=== PATIENT | female | born 1950 | race Caucasian/White ===

== ENCOUNTER 2023-01-13 11:48 | Inpatient (IN) | payer OTHER ==
[~2023-01-13] VITALS: Ht 162.6 cm; Wt 99.3 kg
[2023-02-08] MEDS ORDERED: SCOPOLAMINE HYDROBROMIDE 1 MG PATCH .72 H (TRANSDERM-SCOP) TD ONE ×2 (05:52→07:45)
[2023-02-08] MEDS ORDERED: ACETAMINOPHEN 500 MG TABLET ONE (05:52)
[2023-02-08] MEDS ORDERED: GABAPENTIN 300 MG CAPSULE ONE (05:53)
[2023-02-08] MEDS ORDERED: oxyCODONE HCL 10 MG TAB.ER.12H PO ONE ×2 (05:53→07:45)
[2023-02-08] MEDS ORDERED: CEFAZOLIN SOD 2 GM in D5W 50 ML IV ONE (06:30)
[2023-02-08] MEDS ORDERED: DIPHENHYDRAMINE HCL 25 MG CAPSULE PO PRN (07:30)
[2023-02-08] MEDS ORDERED: VANCOMYCIN HCL 1000 MG/VIAL IV ONE (07:30)
[2023-02-08] MEDS ORDERED: LACTULOSE 20 GM/30 ML UDC PO PRN (07:30)
[2023-02-08] MEDS ORDERED: ROCURONIUM BROMIDE 10 MG/ML (ZEMURON) ONE (07:30)
[2023-02-08] MEDS ORDERED: BUPIVACAINE /PF 0.25% 30 ML VIAL INJ ONE (07:30)
[2023-02-08] MEDS ORDERED: TRANEXAMIC ACID 1,000 MG/10 ML VIAL ONE (07:30)
[2023-02-08] MEDS ORDERED: MIDAZOLAM HCL/PF 2 MG/2 ML SYRINGE ONE (07:30)
[2023-02-08] MEDS ORDERED: MORPHINE SULFATE 10MG/10ML PF AMP ONE (07:30)
[2023-02-08] MEDS ORDERED: NALOXONE HCL 0.4 MG/ML AMP (NARCAN) IVP PRN ×4 (07:30→08:30)
[2023-02-08] MEDS ORDERED: NS 1000 ML IV.SOLN IV ONE (07:30)
[2023-02-08] MEDS ORDERED: KETOROLAC TROMETHAMINE 30 MG VIAL ONE (07:30)
[2023-02-08] MEDS ORDERED: NS IRRIG SOLN 1000 ML IR ONE (07:30)
[2023-02-08] MEDS ORDERED: ONDANSETRON HCL 4 MG/2 ML VIAL ONE (07:30)
[2023-02-08] MEDS ORDERED: DESFLURANE 15 MIN GAS INH ONE (07:30)
[2023-02-08] MEDS ORDERED: LIDOCAINE 2%, 20 ML MDV ONE (07:30)
[2023-02-08] MEDS ORDERED: SUGAMMADEX SODIUM 200 MG/2 ML VIAL IV ONE (07:30)
[2023-02-08] MEDS ORDERED: PROPOFOL 200MG/ 20ML VIAL (DIPRIVAN) IV ONE (07:30)
[2023-02-08] MEDS ORDERED: BISACODYL 10 MG/SUPPOSITORY RC PRN (07:30)
[2023-02-08] MEDS ORDERED: METOCLOPRAMIDE HCL 10 MG/2 ML VIAL IVP PRN ×2 (07:30→08:30)
[2023-02-08] MEDS ORDERED: CELECOXIB 100 MG CAPSULE PO ONE (07:45)
[2023-02-08] MEDS ORDERED: ACETAMINOPHEN 500 MG TABLET PO ONE (07:45)
[2023-02-08] MEDS ORDERED: METO25TA6 PO (08:11)
[2023-02-08] MEDS ORDERED: HYDR25TA4 PO (08:11)
[2023-02-08] MEDS ORDERED: BIFI10.5 PO (08:11)
[2023-02-08] MEDS ORDERED: NEU300 PO (08:11)
[2023-02-08] MEDS ORDERED: LEVO112T5 PO (08:11)
[2023-02-08] MEDS ORDERED: IBUP-1970 PO (08:11)
[2023-02-08] MEDS ORDERED: LIP10 PO (08:11)
[2023-02-08] MEDS ORDERED: TRAM50TA2 PO (08:11)
[2023-02-08] MEDS ORDERED: ASPI-858 PO (08:11)
[2023-02-08] MEDS ORDERED: PRO10 PO (08:11)
[2023-02-08] MEDS ORDERED: MULT-1117 PO (08:11)
[2023-02-08] MEDS ORDERED: hydrALAZINE HCL 20 MG/ML VIAL IVP PRN (08:30)
[2023-02-08] MEDS: LR 1,000 ML IV SCH ×2 (08:30→18:25)
[2023-02-08] MEDS ORDERED: HYDROmorphone 1 MG/ML INJ. CARTRIDGE IVP PRN ×5 (08:30→11:00)
[2023-02-08] MEDS ORDERED: ONDANSETRON HCL 4 MG/2 ML VIAL IVP PRN ×2 (08:30→11:45)
[2023-02-08] MEDS ORDERED: LABETALOL 100 MG/ 20ML VIAL IVP PRN (08:30)
[2023-02-08] MEDS ORDERED: MIDAZOLAM HCL 2 MG/2 ML VIAL (VERSED) IVP PRN (08:30)
[2023-02-08] MEDS ORDERED: DIPHENHYDRAMINE INJ 50 MG/ML VIAL IVP PRN (08:30)
[2023-02-08] MEDS ORDERED: MEPERIDINE HCL/PF 25 MG/ML DISP.SYRIN IVP PRN (08:30)
[2023-02-08] MEDS: DECADRON 4 MG TABLET PO SCH (09:00)
[2023-02-08 09:39] VITALS: PULSE 74; O2SAT 98
[2023-02-08] MEDS ORDERED: LORATADINE 10 MG TABLET PO PRN (11:00)
[2023-02-08] MEDS ORDERED: oxyCODONE HCL 5 MG TABLET PO PRN ×2 (11:00)
[2023-02-08] MEDS: ceFAZolin SODIUM 2 GM in D5W 50 ML IV SCH ×2 (11:15→21:58)
[2023-02-08 13:04] VITALS: BP_SYST 107; PULSE 65; RESP 16; TEMP 96.8; O2SAT 98
--- NOTE | 2023-02-08 13:05 | NUR ---
This is an admission of a 72 year old female under the care of Doctor Reyes status post left hip arthroscopy.
[2023-02-08 13:06] VITALS: O2SAT 2
[2023-02-08] MEDS: KETOROLAC TROMETHAMINE 10 MG TABLET (TORADOL) PO SCH ×2 (14:00→22:30)
[2023-02-08] MEDS: ACETAMINOPHEN 500 MG TABLET PO SCH ×2 (14:36→21:41)
[2023-02-08] MEDS: traMADol HCL HCL 50 MG TABLET (ULTRAM) PO PRN (14:36)
--- NOTE | 2023-02-08 17:38 | NUR ---
Patient ambulating well with walker in room 109 to restroom. Encouraged to sit up. Partial bed bath and linen change complete.
[2023-02-08 17:48] VITALS: BP_SYST 87; PULSE 76; RESP 16; TEMP 96.5; O2SAT 96
[2023-02-08 20:00] VITALS: BP_SYST 102; PULSE 77; RESP 16; TEMP 96.6; O2SAT 95
--- NOTE | 2023-02-08 20:00 | NUR ---
OPENING NOTES PATIENT IS SITTING BY BEDSIDE AXO 4 WITH NO S/S OF DISTRESS OR DISCOMFORT. BREATHING IS EQUAL AND UNLABORED ON RA. PATIENT WAS ABLE TO GET UP FROM CHAIR AND WALK TO BED WITH WALKER. PATIENT DENIES ANY PAIN. SAFETY CHECKS ARE DONE AND CALL LIGHT WITH IN REACH, WILL CONTINUE TO MONITOR.
[2023-02-08] MEDS: GABAPENTIN 300 MG CAPSULE PO SCH (21:41)
[2023-02-08] MEDS: SENNOSIDES/DOCUSATE SODIUM 1 TAB TABLET(SENOKOT-S) PO SCH (21:41)
[2023-02-09] VITALS: BP_SYST 112; PULSE 69; RESP 16; TEMP 97.4; O2SAT 94
[2023-02-09 03:03] VITALS: O2SAT 95
--- NOTE | 2023-02-09 03:55 | NUR ---
ROUNDS PATIENT IS ASLEEP IN BED WITH NO S/S OF DISTRESS OR DISCOMFORT. BREATHING IS EQUAL AND UNLABORED ON RA. SAFETY CHECKS ARE DONE, CALL LIGHT WITH IN REACH AND WILL CONTINUE TO MONITOR.
[2023-02-09] MEDS: ceFAZolin SODIUM 2 GM in D5W 50 ML IV SCH (04:41)
[2023-02-09] MEDS: ACETAMINOPHEN 500 MG TABLET PO SCH (05:30)
[2023-02-09] MEDS: KETOROLAC TROMETHAMINE 10 MG TABLET (TORADOL) PO SCH (05:32)
[2023-02-09] MEDS: LR 1,000 ML IV SCH (05:32)
[2023-02-09 06:01] LABS: HEMATOCRIT 32.9 % (36-48); HEMOGLOBIN 11.2 g/dL (12.0-16.0); LYMPHOCYTES # (AUTO) 0.8 K/uL (1.0-5.5); MEAN CORPUSCULAR HEMOGLOBIN 30 pg (27-31); MEAN CORPUSCULAR HGB CONC 34 % (32-36); MEAN CORPUSCULAR VOLUME 88 fL (79.0-98.0); MONOCYTES % (AUTO) 6.2 % (1.7-9.3); NEUTROPHILS # (AUTO) 14.4 K/uL (1.8-7.7); NEUTROPHILS % (AUTO) 88.8 % (40.0-70.0); PLATELET COUNT (AUTO) 298 K/uL (130-430); RED BLOOD CELL COUNT(AUTO) 3.76 MIL/uL (4.2-6.2); RED CELL DISTRIBUTION WIDTH 13.5 % (9.0-15.0); WHITE BLOOD COUNT (AUTO) 16.2 K/uL (4.8-10.8)
[2023-02-09 06:34] LABS: ALANINE AMINOTRANSFERASE 30 U/L (12-78); ALBUMIN 3.4 g/dL (3.4-4.8); ANION GAP 11 (5-15); ASPARTATE AMINOTRANSFERASE 44 U/L (10-37); CALCIUM 8.8 mg/dL (8.4-11.0); CHLORIDE 99 mmol/L (98-107); CREATININE 1.04 mg/dL (0.55-1.30); GLUCOSE 96 mg/dL (74-106); TOTAL BILIRUBIN 0.5 mg/dL (0.0-1.0); UREA NITROGEN, BLOOD 21 mg/dL (8-21)
--- NOTE | 2023-02-09 06:49 | NUR ---
CLOSING NOTES PATIENT IS LYING IN BED AXO 4 WITH NO S/S OF DISTRESS OR DISCOMFORT. BREATHING IS EQUAL AND UNLABORED ON RA. IVF ARE RUNNING. ALL NEEDS WERE MET AT THIS TIME. SAFETY CHECKS ARE DONE AND CALL LIGHT WITH IN REACH,.
[2023-02-09] MEDS ORDERED: LORATADINE 10 MG TABLET PO ONE (07:45)
[2023-02-09] MEDS ORDERED: POTASSIUM CHLORIDE 20 MEQ TAB.PRT.SR PO ONE (07:45)
[2023-02-09 08:00] VITALS: BP_SYST 110; PULSE 79; RESP 16; TEMP 96.9; O2SAT 97
[2023-02-09] MEDS: SENNOSIDES/DOCUSATE SODIUM 1 TAB TABLET(SENOKOT-S) PO SCH (08:48)
[2023-02-09] MEDS: DECADRON 4 MG TABLET PO SCH (08:49)
[2023-02-09] MEDS: GABAPENTIN 300 MG CAPSULE PO SCH (08:49)
[2023-02-09] MEDS ORDERED: LEVOTHYROXINE SODIUM 0.112 MG TABLET PO SCH (09:00)
[2023-02-09] MEDS ORDERED: HYDROCHLOROTHIAZIDE 25 MG TABLET (HCTZ) PO SCH (09:00)
[2023-02-09] MEDS ORDERED: ATORVASTATIN 10 MG TABLET PO SCH (09:00)
[2023-02-09] MEDS ORDERED: ASPIRIN 325 MG TABLET (ECOTRIN) PO SCH (09:00)
[2023-02-09] MEDS ORDERED: FLUoxetine HCL 10 MG CAPSULE (PROzac) PO SCH (09:00)
[2023-02-09] MEDS ORDERED: METOPROLOL TARTRATE 25 MG TABLET PO SCH (09:00)
[2023-02-09] MEDS ORDERED: CELECOXIB 200 MG CAPSULE PO SCH (11:00)
[2023-02-09 12:08] VITALS: BP_SYST 112; PULSE 60; RESP 17; TEMP 97.6; O2SAT 95
[2023-02-09] MEDS: traMADol HCL HCL 50 MG TABLET (ULTRAM) PO PRN (13:41)
--- NOTE | 2023-02-09 13:53 | NUR ---
pt a&o, no c/o pain in hip, dressing c/d/i. ambulates with walker. d/c instructions given to pt. dr. ordoñez saw pt at bedside - understands to take 325mcg of aspirin for 30 days and follow up appointment is in two weeks. HH w/ pt arranged. pt d/c to home via wheelchair with friend @ 1400.
--- NOTE | 2023-02-10 07:42 | NUR ---
PHYSICAL THERAPY CO-SIGN The Physical Therapy Progress Notes documented by Senior Bookkeeper have been reviewed. Reviewed/Co-Signed by: Reyes Reilly Documentation Done by:DAQUAN FRANKEL Addendum: 02/10/23 at 0743 by Reyes Reilly PT Amended: Links added.
== END 2023-02-09 14:50 | disposition home health service (06) | DRG 470 ==
LOC: UNDOADMIN 11:48 → SMU 11:48
PROVIDERS: ADMIT Student in an Organized Health Care Education/Training Program; ATTEND Student in an Organized Health Care Education/Training Program
PROC: 3E0T3BZ Introduction of Anesthetic Agent into Peripheral Nerves and Plexi, Percutaneous Approach (ICD-10-PCS; 2023-02-08)
PROC: 0SRB03Z Replacement of Left Hip Joint with Ceramic Synthetic Substitute, Open Approach (ICD-10-PCS; principal; 2023-02-08 07:37)
DX: M16.12 Unilateral primary osteoarthritis, left hip (principal); I10 Essential (primary) hypertension; E78.5 Hyperlipidemia, unspecified; Z88.2 Allergy status to sulfonamides; Z79.82 Long term (current) use of aspirin; Z79.899 Other long term (current) drug therapy; Z95.1 Presence of aortocoronary bypass graft
CPT/HCPCS: 36415; 72170-TC; 73501; 80053; 85025; 87081; 88305; 88311; 96379; 97116-GP; 97163-GP; 97530-GP; A4649; C1713; C1776; J0690; J1885; J2001; J2274; J2405; J2704; J2765; J3370; J3465; J3490; J7030; J7060; J7120; J8540; Q0163

== ENCOUNTER 2023-02-09 18:39 | Emergency (ER) | payer OTHER ==
[~2023-02-09] VITALS: Ht 162.6 cm; Wt 98.4 kg
[~2023-02-09 18:39] MED LIST: ASPI-858 PO; BIFI10.5 PO; HYDR25TA4 PO; IBUP-1970 PO; LEVO112T5 PO; LIP10 PO; METO25TA6 PO; MULT-1117 PO; NEU300 PO; PRO10 PO; TRAM50TA2 PO
[2023-02-09 19:01] VITALS: BP_SYST 128; PULSE 85; RESP 18; TEMP 98.3; O2SAT 98
[2023-02-09 20:00] VITALS: BP_SYST 128; PULSE 85; RESP 18; TEMP 98.3; O2SAT 98
== END 2023-02-09 20:00 | disposition home or self-care (01) ==
LOC: SED 18:39
DX: S70.02XA Contusion of left hip, initial encounter (principal); Z79.899 Other long term (current) drug therapy; W18.40XA Slipping, tripping and stumbling without falling, unspecified, initial encounter; Y93.89 Activity, other specified; Y92.89 Other specified places as the place of occurrence of the external cause; Y99.8 Other external cause status
CPT/HCPCS: 72170-TC; 73502; 99284